=== PATIENT | female | born 1985 | race Two or more races ===

== ENCOUNTER 2022-03-08 20:50 | Emergency (ER) | payer OTHER ==
[2022-03-08 20:55] VITALS: BP 129/83; PULSE 102; TEMP 98.3; BMI 37.3
[2022-03-08] MEDS ORDERED: KETOROLAC TROMETHAMINE 30 MG/1 ML VIAL IM ONE (21:24)
[2022-03-08] MEDS ORDERED: METHOCARBAMOL 500 MG TABLET PO ONE (21:24)
[2022-03-08] MEDS ORDERED: KETOROLAC TROMETHAMINE 30 MG/1 ML VIAL ONE (21:25)
[2022-03-08] MEDS ORDERED: METHOCARBAMOL 500 MG TABLET ONE (21:25)
== END 2022-03-08 21:34 | disposition home or self-care (01) ==
LOC: JERFT 20:50
PROC: 3E0233Z Introduction of Anti-inflammatory into Muscle, Percutaneous Approach (ICD-10-PCS; principal; 2022-03-08)
DX: M26.601 Right temporomandibular joint disorder, unspecified (principal)
CPT/HCPCS: 99284-25